=== PATIENT | male | born 1970 | race Caucasian/White ===

== ENCOUNTER 2018-07-01 14:34 | Emergency (ER) | payer OTHER ==
[~2018-07-01] VITALS: Ht 188 cm; Wt 92.1 kg
--- NOTE | 2018-07-01 14:44 | NUR ---
PT REC'D TO ER VIA [facility] . PT ORIENTED X3 . DRANK THIS MORNING AND HAD AN AMBIEN. POLICCE FOUND HIM IN HIS CAR. LEFT SIDE RIBS PAIN03/21 . AWAITING EVALUATION BY ER PROVIDER.
--- NOTE | 2018-07-01 17:09 | NUR ---
Patient discharged to home in stable condition. Written and verbal after care instructions given. Patient verbalizes understanding of instruction.
[2018-07-01 17:11] VITALS: BP 133/88
== END 2018-07-01 17:12 | disposition home or self-care (01) ==
LOC: ER 14:38
DX: F10.229 Alcohol dependence with intoxication, unspecified (principal); Y90.8 Blood alcohol level of 240 mg/100 ml or more
CPT/HCPCS: A4606; Z7610